=== PATIENT | male | born 1980 | race Caucasian/White ===

== ENCOUNTER 2021-03-27 19:56 | Emergency (ER) | payer BC ==
[2021-03-27 20:06] VITALS: RESP 18
[2021-03-27] MEDS ORDERED: FAMOTIDINE 20 MG/2 ML VIAL IV STA (20:13)
[2021-03-27] MEDS ORDERED: diphenhydrAMINE 50 MG/ML 1 ML VIAL IVP STA (20:13)
[2021-03-27] MEDS ORDERED: methylPREDNISolone SOD SUCCI 125 MG/2 ML VIAL IV STA (20:14)
[2021-03-27] MEDS ORDERED: SODIUM CHLORIDE 0.9% 1,000 ML IV STA (20:18)
--- NOTE | 2021-03-27 21:32 | ED ---
Allergic Reaction HPI - General Chief complaint: Allergic Reaction Stated complaint: Poss Allergic Reaction to bee sting Time Seen by Provider: 03/27/21 20:18 Source: patient Mode of arrival: ambulatory Limitations: no limitations - History of Present Illness Initial Comments: Patient is a 40-year-old male presenting to emergency Department with complaints of ALLERGIC reaction after a bee sting. Patient states he was stung by a bee in his left forearm about one hour prior to arrival to the ER. He states he is doing some outside yard work when this happened, and then noticed hives developing on his upper arms bilaterally as well as his chest and neck. He states he also notices upper lip feeling funny and felt like it was swollen so he came into the ER. He states he has been stung by a bee in the past with no ALLERGIC response. He denies any chest tightness or shortness of breath, no trouble breathing. Denies any swelling of his tongue. He has no further complaints at this time. - Related Data Previous Rx's Medication Instructions Recorded EPINEPHrine (Auto Inject) [Epipen] 0.3 mg IM ONCE PRN #2 pen 03/27/21 predniSONE 50 mg PO DAILY #5 tab 03/27/21 Allergies Allergy/AdvReac Type Severity Reaction Status Date / Time No Known Allergies Allergy Verified 03/27/21 20:06 Review of Systems ROS Statement: Those systems with pertinent positive or pertinent negative responses have been documented in the HPI. ROS Other: All systems not noted in ROS Statement are negative. Past Medical History Past Medical History: No Reported History History of Any Multi-Drug Resistant Organisms: None Reported Past Surgical History: No Surgical Hx Reported Smoking Status: Never smoker Past Alcohol Use History: Occasional Past Drug Use History: None Reported General Exam - General Exam Comments Initial Comments: GENERAL: Patient is well-developed and well-nourished. Patient is nontoxic and in no acute distress. HEAD: Atraumatic, normocephalic. EYES: Pupils equal round and reactive to light, extraocular movements intact, sclera anicteric, conjunctiva are normal. Eyelids were unremarkable. ENT: TMs normal, nares patent, oropharynx clear without exudates. Moist mucous membranes. He has some mild swelling of his upper lip. There is no tongue swelling. NECK: Normal range of motion, supple without lymphadenopathy or JVD. LUNGS: Unlabored respirations. Breath sounds clear to auscultation bilaterally and equal. No wheezes rales or rhonchi. HEART: Regular rate and rhythm without murmurs, rubs or gallops. ABDOMEN: Soft, nontender, normoactive bowel sounds. MUSCULOSKELETAL: Normal extremities with adequate strength and normal range of motion, no pitting or edema. No clubbing or cyanosis. NEUROLOGICAL: Patient is alert and oriented x 3. Motor and sensory are also intact. Cranial nerves II through XII grossly intact. Symmetrical smile. Normal speech, normal gait. PSYCH: Normal mood, normal affect. SKIN: Warm, Dry, normal turgor. Patient has hives consistent with allergic rash on his chest, bilateral upper arms, neck and torso. Limitations: no limitations Course Vital Signs 03/27/21 20:03 Pulse Rate 83 Respiratory 18 Rate Blood Pressure 133/90 O2 Sat by Pulse 100 Oximetry Medical Decision Making - Medical Decision Making Patient is a 40-year-old male here with an ALLERGIC reaction to a bee sting happened 1 hour prior to arrival. He was stung on his left forearm. His symptoms developed about an hour after that. He has urticaria on his torso, bilateral upper arms and neck. He has some very mild swelling of his top lip. No tongue swelling, no difficulty breathing, is in no acute distress. Patient was given IV Benadryl, steroids and Pepcid. Patient was reexamined 30 minutes and one hour after medicine administration and reports improvement in his symptoms. His rash is decreasing. Patient is stable for discharge at this t sandip. I'll give him a prescription for steroids to continue as well as an EpiPen for any further severe reactions. Return parameters were discussed with him and he verbalized understanding. Case discussed with Dr. Wilson. Disposition Clinical Impression: Allergic reaction to insect sting Disposition: HOME SELF-CARE Condition: Stable Instructions (If sedation given, give patient instructions): Urticaria (ED) Additional Instructions: Please return to the Emergency Department if symptoms worsen or any other concerns. Take steroids as prescribed over the next few days. Prescription for EpiPen to use as needed for severe ALLERGIC reaction. Follow-up with your primary care physician. Prescriptions: EPINEPHrine (Auto Inject) [Epipen] 0.3 mg IM ONCE PRN #2 pen PRN Reason: Anaphylaxis predniSONE 50 mg PO DAILY #5 tab Is patient prescribed a controlled substance at d/c from ED?: No Referrals: Elvin Pascual MD [Primary Care Provider] - 1-2 days Time of Disposition: 21:32
[2021-03-27 21:45] VITALS: BP 106/71; PULSE 64
== END 2021-03-27 21:45 | disposition home or self-care (01) ==
LOC: EC 19:56
DX: T63.441A Toxic effect of venom of bees, accidental (unintentional), initial encounter (principal)
CPT/HCPCS: 96374; 96375 ×2; 96371; 99282; J1200; J2930; 96361